=== PATIENT | male | born 1960 | race Caucasian/White ===

== ENCOUNTER 2022-01-08 19:44 | Inpatient (IN) | payer BC, SELFPAY ==
[2022-01-08] VITALS (16 sets, daily range): BP systolic 115–144; BP diastolic 65–91; PULSE 64–76; RESP 13–20; TEMP 36.4–36.8; O2SAT 95–99; BMI 37.1; BMI 27.2; BMI 28.5
--- NOTE | 2022-01-08 | IR_ITS ---
APPROVED REPORT Patient Location: Emergent Career Transition Specialist: MEI Blanton RT (R) PROCEDURES Selective coronary angiogram Mechanical thrombectomy to the dominant right coronary Drug-eluting stent to the proximal and mid dominant right coronary in a contiguous manner Drug-eluting stent deployment to the distal circumflex artery's terminal obtuse marginal artery INDICATION Acute ST elevation inferior/right ventricular myocardial infarction, Coronary artery disease Informed consent was obtained prior to the procedure. COMPLICATIONS NONE Estimated Blood Loss: LESS THAN 10 ML TECHNIQUE One percent lidocaine used to anesthetize the right anterior aspect of the wrist. The right radial artery was accessed via the Seldinger technique. A 6 Polish sheath was placed in the right radial artery. 2.5 mg of verapamil, 800 mcg of nitroglycerin, 1mg Lidocaine were given through the arterial sheath. The papa catheter was also used to perform selective coronary angiography. Therapeutic heparin was administered in the emergency department with the ACT being over 240 seconds. Additional heparin was administered. Angiography demonstrated a thrombosed proximal dominant right coronary artery. A Choice PT extra-support wire was placed through the occlusion. A penumbra mechanical thrombectomy device was used to perform aspiration and thrombectomy of the occluded vessel thereby restoring BOBY-3 flow. A 3.5 x 38 mm resolute Gene stent was placed in the proximal vessel and deployed at 22 chava reducing the stenosis. BOBY-3 flow was present. The catheter was then placed in the left main artery where angiography was performed which demonstrated a severe to critical circumflex artery. Of interest patient's right radial artery was very noncompliant rolled and access was not an easy achievement of the radial artery. Because of this I decided to stent the circumflex artery therefore the Choice PT wire was placed distally and a 3 mm x 30 mm resolute [place] stent was deployed at 16 chava reducing the severe to critical stenosis to 0%. BOBY-3 flow was present before and after the procedure. Patient experienced junctional tachycardia with bradycardia and there appeared to be recurrent ST elevation therefore repeat angiography of the right coronary artery still demonstrated BOBY-3 flow however there appeared to be a lesion that was significant enough where I believed revascularization was beneficial. A 3.5 x 15 mm resolute Gene stent was placed distal to the first stent yet still overlapping it and deployed at 16 chava reducing the stenosis to 0%. BOBY 0 flow was present at the beginning of the procedure with BOBY-3 flow at the end of the procedure the right coronary artery. After achieving excellent angiographic results the apparatus was removed the sheath was removed and hemostasis was achieved using TR banding patient was transferred to the postop putting in stable condition ANGIOGRAPHIC RESULTS The left main artery Normal The left anterior descending artery Has proximal 30% stenosis with mid vessel 30 to 40% stenosis. The circumflex artery Large ramus intermedius originates off the distal left main artery and has proximal 40% stenosis. The circumflex artery is a large vessel and gives rise to 1 large terminal obtuse marginal artery which has a long concentric 90% stenosis in the proximal portion of the first obtuse marginal artery The right coronary artery Is dominant and initially proximally thrombosed. Following revascularization the right coronary artery was widely patent with minimal mid vessel 20% stenoses and wide BOBY-3 flow The PERRY ventriculogram reveals Not performed The left ventricular end-diastolic pressure Not ricardo
--- NOTE | 2022-01-08 19:47 | ECG_ITS ---
APPROVED REPORT Exam: Resting ECG HR:62 bpm ECG Measurements Heart Rate 62 AXES PA 148 P 66 QRSd 93 QRS 77 QT 406 T 122 QTc 411 Conclusion SINUS RHYTHM NONSPECIFIC ST & T-WAVE ABNORMALITY BORDERLINE ECG UNCONFIRMED REPORT Electronically signed by : Cristi Thompson MD 01/09/2022 21:07:02
--- NOTE | 2022-01-08 19:50 | PC.NURSE ---
s/w medical lab specialist, gave report and they are ready for pt. House notified.
--- NOTE | 2022-01-08 19:51 | XR_ITS ---
PROCEDURE INFORMATION: Exam: XR Chest Exam date and time: 01/08/2022 7:54 PM Age: 61 years old Clinical indication: Pain; Other: Stemi TECHNIQUE: Imaging protocol: Radiologic exam of the chest. Views: 1 view. COMPARISON: No relevant prior studies available. FINDINGS: Lungs: Atelectasis versus infiltrate in the right lung base. Pleural spaces: Unremarkable. No pleural effusion. No pneumothorax. Heart/Mediastinum: Unremarkable. No cardiomegaly. Bones/joints: Unremarkable. IMPRESSION: Atelectasis versus infiltrate in the right lung base.
--- NOTE | 2022-01-08 19:51 | PC.NURSE ---
Pt transported to filling station laborer with zoll in place.
--- NOTE | 2022-01-08 19:52 | HMH.EDGENADL ---
ED Disposition Clinical Impression: ST elevation AK (STEMI) Qualifiers: Involved coronary artery: unspecified coronary artery Qualified Code(s): I21.3 - ST elevation (STEMI) myocardial infarction of unspecified site Disposition: Admitted As Inpatient Condition on Discharge: Serious - Critical Care Critical Care Time: No Attestation: On , the high probability of a clinically significant, sudden or life threatening deterioration of the following system(s) required my full and direct attention, intervention and personal management. The time I documented below is in addition to time spent performing reported procedures but includes the following listed in this critical care notation. Medical Decision Making - Dylan Inquiry Pt receiving controlled substance: No Orders (Tests/Meds): ED MEDICATIONS Generic Name Dose Route Start Last Admin Trade Name Freq PRN Reason Stop Dose Admin Diphenhydramine HCl 50 mg 01/08/22 19:56 Diphenhydramine 50mg/Ml Vial IV 01/08/22 19:57 ONCE ONE Fentanyl Citrate 25 mcg 01/08/22 19:56 Fentanyl 100mcg/2ml Vial IV 01/09/22 19:56 Q3MINP PRN Moderate to Severe Pain Fentanyl Citrate 50 mcg 01/08/22 19:56 Fentanyl 100mcg/2ml Vial IV 01/09/22 19:56 Q3MINP PRN Moderate to Severe Pain Fentanyl Citrate 25 mcg 01/08/22 19:56 Fentanyl 250mcg/5ml Vial IV 01/09/22 19:56 Q3MINP PRN Moderate to Severe Pain Fentanyl Citrate 50 mcg 01/08/22 19:56 Fentanyl 250mcg/5ml Vial IV 01/09/22 19:56 Q3MINP PRN Moderate to Severe Pain Flumazenil 0.2 mg 01/08/22 19:56 Flumazenil 0.1mg/Ml 5ml Vial IV 01/08/22 23:00 NEEDED PRN Sedation Heparin Sodium (Porcine) 10,000 unit 01/08/22 19:56 Heparin 1,000 Units/Ml 10ml Vial (Flight Test Supervisor) IV 01/08/22 23:56 NEEDED PRN [facility] Admissions Director Heparin Sodium/Sodium Chloride 3,000 unit 01/08/22 19:56 Heparin 1,000 Units/500ml Ns (Flight Test Supervisor) IV 01/08/22 19:57 ONCE ONE Sodium Chloride 1,000 mls @ 25 mls/hr 01/08/22 20:00 Sod Chloride 0.9% 500ml Bag IV 01/09/22 19:56 .Q25H JUANIS Lidocaine HCl 20 ml 01/08/22 19:56 Lidocaine 1% 10ml Mdv IJ 01/08/22 19:57 ONCE ONE Lidocaine HCl 20 ml 01/08/22 19:56 Lidocaine 1% 5ml Pf Vial IJ 01/08/22 19:57 ONCE ONE Midazolam HCl 1 mg 01/08/22 19:56 Midazolam 2mg/2ml Vial IV 01/09/22 19:56 Q3MINP PRN Sedation Midazolam HCl 1 mg 01/08/22 19:56 Midazolam Hcl 1mg/1ml 5ml Vial IV 01/09/22 19:56 Q3MINP PRN Sedation Naloxone HCl 0.4 mg 01/08/22 19:56 Naloxone 0.4mg/Ml Vial IV 01/09/22 19:56 Q5MINP PRN Decreased Respirations Nitroglycerin 800 mcg 01/08/22 19:56 Nitroglycerin 800mcg/8ml Syr (Flight Test Supervisor) IV 01/09/22 19:56 NEEDED PRN [facility] Admissions Director Verapamil HCl 2.5 mg 01/08/22 19:56 Verapamil 2.5mg/Ml 2ml Vial IV 01/08/22 19:57 ONCE ONE Discontinued Medications Generic Name Dose Route Start Last Admin Trade Name Freq PRN Reason Stop Dose Admin Heparin Sodium (Porcine) 10,000 unit 01/08/22 19:49 Heparin Sodium 5,000 Unit/Ml Vial IV 01/08/22 19:50 ONCE ONE Ticagrelor 180 mg 01/08/22 19:49 Ticagrelor 90mg Tablet PO 01/08/22 19:50 ONCE ONE ORDERS Category Date Time Status Cardiology Consult [Consult to Cardiology] [CONS] Cons 01/08/22 19:51 Active Routine XR chest portable Stat Exams 01/08/22 19:51 Ordered Basic Metabolic Panel Stat Lab 01/08/22 19:51 Ordered Brain Natriuretic Peptide Stat Lab 01/08/22 19:51 Ordered Complete Blood Count Auto Diff Stat Lab 01/08/22 19:51 Ordered Troponin I Q3H Lab 01/08/22 23:00 Ordered Troponin I Q3H Lab 01/09/22 02:00 Ordered Troponin I Stat Lab 01/08/22 19:51 Ordered - ECG Data Tracing #1 EKG interpreted by Roberto Duong MD: Rhythm: sinus Rate: 62 [place]: normal Ectopy: none Conduction: normal ST Segment C
[2022-01-08 19:56] LABS: Basophils # 0.2 K/mm3 (0-0.2); Basophils % 1.1 % (0.1-2.0); Eosinophils # 0.1 K/mm3 (0.0-0.4); Eosinophils % 0.9 % (0.1-12.0); Hematocrit 49.6 % (42.0-52.0); Hemoglobin 16.5 g/dL (14.1-18.0); Lymphocytes # 2.2 K/mm3 (0.7-4.5); Lymphocytes % 14.6 % (10-50); Mean Corpuscular HGB Conc 33.2 g/dL (31.8-35.4); Mean Corpuscular Hemoglobin 32.8 pg (27.0-31.2); Mean Corpuscular Volume 98.6 fl (80-94); Mean Platelet Volume 8.5 fl (7.4-10.4); Monocytes # 0.6 K/mm3 (0.1-1.0); Monocytes % 4.1 % (1.7-9.3); Neutrophils # 11.7 K/mm3 (1.8-7.8); Neutrophils % 79.3 % (37.0-80.0); Platelet Count 269 K/mm3 (142-424); Red Blood Count 5.03 M/mm3 (4.60-6.20); Red Cell Distribution Width 13.2 % (11.5-17.5); White Blood Count 14.8 K/mm3 (4.8-10.8)
[2022-01-08 20:12] LABS: Anion Gap 14.3 mEq/L (5-15); Blood Urea Nitrogen 15 mg/dl (9-20); Calcium 9.5 mg/dl (8.4-10.2); Carbon Dioxide 26 mmol/L (22.0-30.0); Chloride 100 mmol/L (98-107); Creatinine Clearance Estimated 71 mL/min (50-200); Estimated Glomerular Filt Rate 44 ml/min (>60); GFR (African American) 53 ML/MIN (>60); Glucose 305 mg/dl (74-100); Potassium 4.3 mmoL/L (3.5-5.1); Sodium 136 mmol/L (136-145)
[2022-01-08 20:24] LABS: NT Pro Brain Natriuretic Pep. 365 pg/mL (0-125); Troponin I 0.18 ng/ml (0.00-0.034)
[2022-01-08 20:44] LABS: Coronavirus 19, PCR Not Detected (NotDetected); Influenza A, PCR Not Detected (NotDetected); Influenza B, PCR Not Detected (NotDetected)
[2022-01-08 21:09] LABS: CATHL Activated Clotting Time 246 SEC (74-125)
[2022-01-08 21:09] LABS: CATHL Activated Clotting Time 256 SEC (74-125)
--- NOTE | 2022-01-08 21:11 | PC.NURSE ---
patient up to floor via stretcher from cathlab @ this time.
[2022-01-09] VITALS (14 sets, daily range): BP systolic 106–154; BP diastolic 64–93; PULSE 60–74; RESP 15–20; TEMP 36.7–37.7; O2SAT 93–96; BMI 28.3
--- NOTE | 2022-01-09 05:52 | PC.NURSE ---
-PT HAS HAD NO COMPLAINTS THIS SHIFT. DENIES CP, SOA, NUMBNESS, AND TINGLING IN EXTREMITIES. HE IS A&O X4. -NSR WITH PERIODS OF JUNCTIONAL RHYTHM, SINUS ARRHYTHMIA, PVC'S AND/OR PAC'S ON TELEMETRY. HR HAS BEEN 63-84. SBP HAS BEEN 106-149. RIGHT RADIAL CATH SITE DRESSING IN PLACE (2x2'S AND TEGADERM). C/D/I. BRUISING NOTED AROUND CATH SITE. NO HEMATOMA. CAP REFILL 2 SECS BUE AND BLE. +2 PULSES IN BUE AND BLE. VERICOSE VEINS NOTED TO BLE. S1&S2 SOUNDS HEARD ON AUSCULTATION. -HE REMAINS ON ROOM AIR WITH O2 SATS 94-98&. -HE STATES LAST BM WAS 01/08. NO BM THIS SHIFT. ABDOMEN SOFT AND NON-TENDER. VOIDS PER URINAL, 1600 ML URINE OUTPUT THIS SHIFT. HE AMBULATED IN ROOM AND TO BATHROOM THIS MORNING, AND TOLERATED WELL. -RED AND SCALY PATCHES NOTED TO BILATERAL ELBOWS.
[2022-01-09 06:15] LABS: Anion Gap 9.6 mEq/L (5-15); Blood Urea Nitrogen 15 mg/dl (9-20); Calcium 8.7 mg/dl (8.4-10.2); Carbon Dioxide 25 mmol/L (22.0-30.0); Chloride 106 mmol/L (98-107); Creatinine Clearance Estimated 119 mL/min (50-200); Estimated Glomerular Filt Rate 76 ml/min (>60); GFR (African American) 92 ML/MIN (>60); Glucose 166 mg/dl (74-100); Potassium 3.6 mmoL/L (3.5-5.1); Sodium 137 mmol/L (136-145)
[2022-01-09 06:17] LABS: Basophils # 0.1 K/mm3 (0-0.2); Basophils % 0.9 % (0.1-2.0); Eosinophils # 0.2 K/mm3 (0.0-0.4); Eosinophils % 1.7 % (0.1-12.0); Hematocrit 45.2 % (42.0-52.0); Hemoglobin 15.2 g/dL (14.1-18.0); Lymphocytes # 2.7 K/mm3 (0.7-4.5); Lymphocytes % 26.5 % (10-50); Mean Corpuscular HGB Conc 33.7 g/dL (31.8-35.4); Mean Corpuscular Hemoglobin 33.1 pg (27.0-31.2); Mean Corpuscular Volume 98.1 fl (80-94); Mean Platelet Volume 8.3 fl (7.4-10.4); Monocytes # 0.7 K/mm3 (0.1-1.0); Monocytes % 7.1 % (1.7-9.3); Neutrophils # 6.4 K/mm3 (1.8-7.8); Neutrophils % 63.8 % (37.0-80.0); Platelet Count 211 K/mm3 (142-424); Red Cell Distribution Width 13.2 % (11.5-17.5)
--- NOTE | 2022-01-09 08:11 | CA_ITS ---
APPROVED REPORT EXAM: Comprehensive 2D, Doppler, and color-flow Echocardiogram Post Tronic Machine Operator: NANCY Hoyt, RVS Ht: 6 ft 5 in Wt: 241lbs BSA: 2.42 HR: 68 bpm BP: 150/93 mmHg Rhythm: Irregular Indications: STEMI, Atypical CP arm pain with dizziness, Smoker, Family hx-CAD 2D Dimensions IVSd 1.08 cm LVEF (Visual) 79.00 % PWd 1.01 cm LA Volume 63.80 mL LVDd 4.92 cm LA Volume Index 26.40 mL/m2 (M/F) 16-34 LVDs 2.57 cm Aortic Root 3.04 cm Left Atrium 4.07 cm LVOT 2.19 cm (M/F) 1.5-2.5 M-Mode Dimensions RVDd 3.22 cm (0.9-2.6) LA Diam 4.13 cm (1.9-4.0) LVDd 5.40 cm (3.5-5.7) Ao Diam 3.38 cm (2.0-3.7) LVDs 3.99 cm (3.5-5.7) IVSd 1.05 cm (0.6-1.1) PWd 0.89 cm (0.6-1.1) EF (Teich) 50.70% EPSs 0.57 cm FS 26.10% EDV (Teich) 141.30 mL TAPSE 2.11 (<1.7) ESV (Teich) 69.60 mL LV Diastology E Decel Time 267.00 (160-240 msec) E/A Ratio 0.74 MED E' 6.20 (< 7 cm/sec) MED A' 10.00 cm/s E'/MED E' Ratio 12.74 (>14) LAT E' 8.40 (<10 cm/sec) LAT A' 12.50 cm/s E/LAT E' Ratio 9.40 (>14) Aortic Valve LVOT Max 109.00 (70-110 cm/s) LVOT VTI 22.19 cm AoV Peak Simon. 242.00 (50-130 cm/s) AO Peak GR. 23.40 mmHg AO Mean GR. 12.70 (<5 mmHg) AO VTI 48.64 (18-25 cm) CHINEDU (VTI) 1.72 (2.5-4.5 cm2) Mitral Valve MV A Velocity 107.00 (40-130 cm/s) E/A Ratio 0.74 MV Decel. Time 267.00 (160-240 ms) MV Mean Gr. 1.70 (<2mmHg) MV PHT 73.00 ms Pulmonary Valve PV Peak Velocity 116.00 (50-150 cm/s) Tricuspid Valve TR P. Velocity 176.00 cm/s Left Ventricle Left atrium is mildly enlarged left ventricle is normal size mild concentric left ventricular hypertrophy estimated ejection fraction 55% with no regional wall motion abnormality, grade 1 diastolic dysfunction seen with tissue Doppler evidence of raise left atrial pressure. Right Ventricle Right atrium and right ventricle are mildly enlarged with normal contractility. Aortic Valve Aortic valve is thickened and calcified mean gradient across aortic valve is 13 mmHg, valve area is 1.8 cm represents mild aortic stenosis, there is mild aortic insufficiency. Mitral Valve Mitral valve leaflets are minimally thickened, there is mild mitral regurgitation. Tricuspid Valve Tricuspid valve is grossly normal, there is mild tricuspid regurgitation, tricuspid regurgitation jet velocity is inadequate for calculation of the right ventricular systolic pressure. Pulmonic Valve Pulmonic valve is poorly visualized. Great Vessels Aortic root is normal size. Inferior vena cava is normal size with normal inspiratory collapse. Pericardium No significant pericardial effusion noted. Conclusion 1. Mild biatrial enlargement, normal left ventricular size, mild concentric left ventricular hypertrophy. Estimated ejection fraction 85% with no regional wall motion abnormality, grade 1 diastolic dysfunction seen with tissue Doppler evidence of atypical pressure. 2. Thickened and calcified aortic valve with mild aortic stenosis and mild aortic insufficiency. 3. Mild mitral and tricuspid regurgitation. 4. No significant pericardial effusion required. 5. Inferior vena cava normal size with normal inspiratory collapse. Electronically signed by : Matt Yan MD 01/10/2022 11:58:21
--- NOTE | 2022-01-09 08:12 | HMH.CNCARD ---
History of Present Illness Consult date: 01/09/22 Requesting physician: Indu Vicente Consult reason: chest pain Chief complaint: STEMI Additional Medical History:: 1. FH of CAD in older brother (in his 70's) and mother (CABG in her early 60's) 2. Tobacco use, >1 ppd X 47 yrs 3. CAD A. Inferior STEMI, 01/08/2022, 2 MARIYA to RCA after thrombectomy, 1 MARIYA to Cx/OM. ANGIOGRAPHIC RESULTS The left main artery Normal The left anterior descending artery Has proximal 30% stenosis with mid vessel 30 to 40% stenosis. The circumflex artery Large ramus intermedius originates off the distal left main artery and has proximal 40% stenosis. The circumflex artery is a large vessel and gives rise to 1 large terminal obtuse marginal artery which has a long concentric 90% stenosis in the proximal portion of the first obtuse marginal artery The right coronary artery Is dominant and initially proximally thrombosed. Following revascularization the right coronary artery was widely patent with minimal mid vessel 20% stenoses and wide BBOY-3 flow The PERRY ventriculogram reveals Not performed The left ventricular end-diastolic pressure Not measured IMPRESSION Acute inferior/right ventricular ST elevation myocardial infarction Successful mechanical thrombectomy followed by drug-eluting stent of the proximal and mid dominant right coronary in a contiguous manner reducing the 100% occlusion to 0% Successful drug-eluting stent denting of a severe to critically diseased large terminal obtuse marginal artery of the circumflex artery PLAN 1. Brilinta 90 twice daily plus aspirin 81 mg daily 2. Formal echocardiogram in the morning 3. Start Entresto and then uptitrate 4. It may be castañeda to hold beta-blockers for the time being. Patient will likely experience some atrial arrhythmias with some sinus arrest over the next 24 to 48 hours 5. Supportive care on telemetry 6. Inpatient care for at least 48 hours 7. High intensity statin with goal LDL less than 55 8. 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 Patient relates intermittent episodes of lightheadedness that would resolve with sitting and resting in his air conditioned truck. 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 Contacted his neighbor who called EMS to transport patient to the ER. In route EKG showed inferior ST elevation [place] and Roller Man was alerted. He was taken straight to the Roller Man with placement of stents into the occluded RCA and 90% circumflex OM arteries. Patient was noted to be bradycardic while in the ambulance but once coronary stenting was performed heart rate has improved into the 70s overnight. He has had some atrial arrhythmias but no significant ventricular arrhythmias. Patient states he feels much better this morning and is anxious to go home but understands he will need to be monitored for 48 hours. Nondiabetic On no medications Family history of heart disease in an older brother and his mother [facility] History *Have you ever received a pneumonia vaccine?: No *Have you received a flu vaccine this season?: Yes - *Social History Last grade of school completed: Advanced degree Smoking Status: Current every day smoker Tobacco Type: cigarettes # Packs/Day (cigarettes): 0 Alcohol Intake: never *Occupational Status:: employed *Travel in the last 8 weeks: None Family Hx:: Coronary Artery Disease, Diabetes Meds Allergies Allergy/AdvReac Type Sev
--- NOTE | 2022-01-09 08:25 | XR_ITS ---
FINAL REPORT CLINICAL HISTORY: follow up abnormal CXR COMPARISON: January 08, 2022 FINDINGS: PA and lateral views of the chest were obtained. The cardiac and mediastinal silhouettes are within normal limits. The lungs are clear. There is no pleural effusion or pneumothorax. No acute osseous abnormality is identified. IMPRESSION: No radiographic evidence of acute cardiac or pulmonary disease. Reviewed, Interpreted and Dictated by Rhea Scanlon MD Transcribed by Henok Mckay Authenticated and . [facility]
--- NOTE | 2022-01-09 10:03 | HMH.PHAVTE ---
[facility] Pharmacy VTE Monitoring - Patient Demographics Admission date: 01/09/22 Report Date: 01/09/22 Time: 10:03 Allergies/Adverse Reactions: Patient Allergies bacitracin [From Neosporin ([id number]-[id number])] Allergy (Verified 01/08/22 19:56) neomycin [From Neosporin (rri-sqi-filus)] Allergy (Verified 01/08/22 19:56) polymyxin B [From Neosporin ([id number]-rvb-gernd)] Allergy (Verified 01/08/22 19:56) Height: 1.96 m Weight: 109.486 kg Patient Problems: Current Active Problems ST elevation [place] (STEMI) (Acute) Tobacco use (Acute) - VTE Risk Labs: VTE Related Lab Results Hgb 15.2 g/dL (14.1-18.0) 01/09/22 05:36 Hct 45.2 % (42.0-52.0) 01/09/22 05:36 Plt Count 211 K/mm3 (142-424) 01/09/22 05:36 BUN 15 mg/dl (9-20) 01/09/22 05:36 Creatinine 1.00 mg/dl (0.66-1.25) D 01/09/22 05:36 Estimated Creat Clear 119 mL/min (50-200) 01/09/22 05:36 Was VTE Risk Assessment Performed: Yes - Prophylaxis Types of VTE Prophylaxis: TEDS Knee High Location of Applied Device: Bilateral Lower Extremeties (JONATHAN HOSE ORDERED)
--- NOTE | 2022-01-09 10:04 | HMH.PHAVTE ---
[facility] Pharmacy VTE Monitoring - Patient Demographics Admission date: 01/08/22 Report Date: 01/09/22 Time: 10:04 Allergies/Adverse Reactions: Patient Allergies bacitracin [From Neosporin ([id number]-idi-[id number])] Allergy (Verified 01/08/22 19:56) neomycin [From Neosporin (yhf-avd-iwhhf)] Allergy (Verified 01/08/22 19:56) polymyxin B [From Neosporin (wgl-civ-vcvag)] Allergy (Verified 01/08/22 19:56) Height: 1.96 m Weight: 109.486 kg Patient Problems: Current Active Problems ST elevation [place] (STEMI) (Acute) Tobacco use (Acute) - VTE Risk Labs: VTE Related Lab Results Hgb 15.2 g/dL (14.1-18.0) 01/09/22 05:36 Hct 45.2 % (42.0-52.0) 01/09/22 05:36 Plt Count 211 K/mm3 (142-424) 01/09/22 05:36 BUN 15 mg/dl (9-20) 01/09/22 05:36 Creatinine 1.00 mg/dl (0.66-1.25) D 01/09/22 05:36 Estimated Creat Clear 119 mL/min (50-200) 01/09/22 05:36 Was VTE Risk Assessment Performed: Yes - Prophylaxis VTE Prophylaxis Ordered?: Yes Types of VTE Prophylaxis: TEDS Knee High Location of Applied Device: Bilateral Lower Extremeties (JONATHAN HOSE ORDERED)
--- NOTE | 2022-01-09 10:37 | HMH.HP ---
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 Patient relates intermittent episodes of lightheadedness that would resolve with sitting and resting in his air conditioned truck. 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 Contacted his neighbor who called EMS to transport patient to the ER. In route EKG showed inferior ST elevation [place] and Supervisor Carpenters was alerted. He was taken straight to the Supervisor Carpenters with placement of stents into the occluded RCA and 90% circumflex OM arteries. Patient was noted to be bradycardic while in the ambulance but once coronary stenting was performed heart rate has improved into the 70s overnight. He has had some atrial arrhythmias but no significant ventricular arrhythmias. Patient states he feels much better this morning and is anxious to go home but understands he will need to be monitored for 48 hours. Nondiabetic On no medications Family history of heart disease in an older brother and his mother (above as per Vasquez Segundo) [facility] History I have reviewed the patient's past medical history: Yes Medical History: Denies:: Diabetes Mellitus Type 2, Hyperlipidemia, Hypertension *Have you ever received a pneumonia vaccine?: No *Have you received a flu vaccine this season?: Yes Other Surgeries: Yes: No Previous Surgery - *Social History Last grade of school completed: Advanced degree Smoking Status: Current every day smoker Tobacco Type: cigarettes # Packs/Day (cigarettes): 0 Alcohol Intake: never *Occupational Status:: employed *Travel in the last 8 weeks: None Family Hx:: Coronary Artery Disease, Diabetes Review of Systems - Constitutional Reports excessive sweating, Denies chills, Denies fever(s) - Eyes Reports blurry vision - ENT Denies nasal congestion, Denies sore throat - *Cardiovascular Reports chest pain, Reports shortness of breath, Denies leg swelling - *Respiratory Reports shortness of breath, Denies cough - *Gastrointestinal Denies abdominal pain, Denies loose stools, Denies nausea, Denies vomiting - *Genitourinary Denies difficulty urinating, Denies painful urination - *Musculoskeletal Denies joint pain - *Neurologic Reports weakness, Denies headache(s), Denies dizziness Meds Home Medications Medication Instructions Recorded Confirmed Type No Known Home Medications 01/09/22 01/09/22 History Allergies Allergy/AdvReac Type Severity Reaction Status Date / Time bacitracin Allergy Verified 01/08/22 19:56 [From Neosporin ([id number]-mln-fytjo)] neomycin Allergy Verified 01/08/22 19:56 [From Neosporin (svl-asd-auviy)] polymyxin B Allergy Verified 01/08/22 19:56 [From Neosporin ([id number])] Exam Vital signs and Labs for Last 24 Hours: Temp Pulse Resp BP Pulse Ox 99.9 F H 70 20 150/93 H 96 01/09/22 08:00 01/09/22 08:00 01/09/22 08:00 01/09/22 08:00 01/09/22 08:00 Laboratory Results - last 24 hr 01/08/22 19:47: WBC 14.8 H, RBC 5.03, Hgb 16.5, Hct 49.6, MCV 98.6 H, MCH 32.8 H, MCHC 33.2, RDW 13.2, Plt Count 269, MPV 8.5, Neut % (Auto) 79.3, Lymph % (Auto) 14.6, Sanders % (Auto) 4.1, Eos % (Auto) 0.9, Baso % (Auto) 1.1, Neut # (Auto) 11.7 H, Lymph # (Auto) 2.2, [place] # (Auto) 0.6, Eos # (Auto) 0.1, Baso # (Auto) 0.2 01/08/22 19:47: Sodium 136, Potassium 4.3, Chloride 100, Carbon Dioxide 26, Anion Gap 14.3, BUN 15, Creatinine 1.60 H, Estimated Creat Clear 71, Estimated GFR 44 L, Est GFR ( Amer) 53 L, Glucose 305 H, Calcium 9.5, Troponin I 0.18 H, NT-Pro-B Natriuret Pep
--- NOTE | 2022-01-09 15:01 | PC.NURSE ---
PT IS SITTING UP ON THE SOB. ALERT AND ORIENTED X4. NO COMPLAINTS OF CP/SOA. PT HAS BEEN AMBULATING AROUND THE ROOM AND TO THE BATHROOM. EATING AND DRINKING WELL. NO SWELLING NOTED TO BLE. NSR ON TELEMETRY. LUNG SOUNDS CLEAR. ABDOMEN SOFT/NON TENDER. PT STATED HIS LAST BOWEL MOVEMENT WAS YESTERDAY. WILL CONTINUE TO MONITOR.
[2022-01-10] VITALS: PULSE 65
[2022-01-10 04:00] VITALS: BP 132/69; PULSE 65; PULSE 68; RESP 16; TEMP 36.9; O2SAT 96
[2022-01-10 05:49] VITALS: BMI 28.5
--- NOTE | 2022-01-10 05:57 | PC.NURSE ---
-PT HAS HAD NO COMPLAINTS THIS SHIFT. DENIES CP, SOA, NUMBNESS, AND TINGLING IN EXTREMITIES. HE IS A&O X4. -NSR WITH INVERTED T WAVES AND OCCASIONAL PAC'S ON TELE. HR HAS BEEN 66-70. SBP HAS BEEN 131-154. RIGHT RADIAL CATH SITE DRESSING IN PLACE (2x2'S AND TEGADERM). C/D/I. BRUISING NOTED AROUND CATH SITE. NO HEMATOMA. CAP REFILL 2 SECS BUE AND BLE. +2 PULSES IN BUE AND BLE. VERICOSE VEINS NOTED TO BLE. S1&S2 SOUNDS HEARD ON AUSCULTATION. -HE REMAINS ON ROOM AIR WITH O2 SATS 96%
--- NOTE | 2022-01-10 07:30 | ECG_ITS ---
APPROVED REPORT Exam: Resting ECG HR:66 bpm ECG Measurements Heart Rate 66 AXES OR 161 P 43 QRSd 98 QRS 58 QT 397 T 133 QTc 410 Conclusion SINUS RHYTHM WITH SINUS ARRHYTHMIA ST DEVIATION AND MODERATE T-WAVE ABNORMALITY, CONSIDER LATERAL ISCHEMIA [-0.1+ mV T-WAVE IN I/aVL/V5/V6] ABNORMAL ECG UNCONFIRMED REPORT Electronically signed by : Cristi Thompson MD 01/10/2022 14:53:13
--- NOTE | 2022-01-10 07:51 | P.PN_ITS ---
Subjective Date: 01/10/22 Time: 07:51 Principal diagnosis: STEMI Interval history: 61-year-old white male in bed in no acute distress. Denies any chest pain, pressure or tightness. Telemetry shows no arrhythmias overnight. EKG shows slight ST scooping inferiorly but improved compared to admission. T wave inversion noted laterally. Consistent with evolving changes from recent inferior VA. Echocardiogram results officially pending at this time but preliminary shows preserved ejection fraction. Exam Vital signs and Labs for Last 24 Hours: Temp Pulse Resp BP Pulse Ox 98.5 F 68 16 132/69 96 01/10/22 04:00 01/10/22 04:00 01/10/22 04:00 01/10/22 04:00 01/10/22 04:00 I & O for Last 24 hours: Intake & Output 01/07/22 01/08/22 01/09/22 01/10/22 11:59 11:59 11:59 11:59 Intake Total 720 / 720 960 / 960 Output Total 1600 / 1600 Balance -880 / -880 960 / 960 Weight 240 lb 4.862 oz 241 lb 6.005 oz - Constitutional no acute distress - *Routine HEENT Exam Head: Present: normocephalic Eye: Present: EOMI, PERRL ENT: Present: mucous membranes moist - *Routine Neck Exam Present: supple. Absent: lymphadenopathy - *Routine Respiratory Exam Present: CTA bilaterally - *Routine Cardiovascular Exam Present: RRR - *Routine Abdominal Exam Present: soft, normoactive bowel sounds. Absent: tenderness - *Routine Extremities Exam Absent: cyanosis, clubbing, edema - *Routine Skin Exam Present: warm. Absent: rash - *Routine Neurological Exam Present: alert, oriented X3 Progress Note: A&P (1) ST elevation VA (STEMI) Status: Acute (2) Tobacco use Status: Acute Assessment and Plan for All Diagnoses:: 1. Inferior ST elevation VA status post drug-eluting stent placement to the RCA and circumflex OM. Patient is on aspirin, Brilinta, atorvastatin and Entresto. Holding off on beta-andres therapy at this time due to bradycardia and history of junctional heart rhythm in the past. 2. Hyperlipidemia, on statin therapy 3. Tobacco use, patient states he has stopped smoking at the time of his VA this admission. Anticipate patient could be discharged home this evening at the end of his 48- hour monitoring. Home medications recommendations: Aspirin 81 mg daily Brilinta 90 mg twice daily Atorvastatin 40 mg daily Entresto twice daily Off work until follow-up next week. Will refer to cardiac rehab. Follow-up in our office in 1 week.
[2022-01-10 08:00] VITALS: BP 134/75; PULSE 70; RESP 18; TEMP 36.8; O2SAT 96; O2SAT 97
--- NOTE | 2022-01-10 08:35 | HMH.ACPN2 ---
Internal Medicine - PN: Subj *Date: 01/10/22 *Time: 08:35 Interval history: Patient states he is feeling well this morning. He has had no more chest pain or shortness of breath. He slept well and ate breakfast and was anxious to go home. Exam Vital signs and Labs for Last 24 Hours: Temp Pulse Resp BP Pulse Ox 98.5 F 68 16 132/69 96 01/10/22 04:00 01/10/22 04:00 01/10/22 04:00 01/10/22 04:00 01/10/22 04:00 I & O for Last 24 hours: Intake & Output 01/07/22 01/08/22 01/09/22 01/10/22 11:59 11:59 11:59 11:59 Intake Total 720 / 720 960 / 960 Output Total 1600 / 1600 Balance -880 / -880 960 / 960 Weight 240 lb 4.862 oz 241 lb 6.005 oz - Constitutional no acute distress - *Routine HEENT Exam Head: Present: normocephalic Eye: Present: EOMI, PERRL ENT: Present: mucous membranes moist - *Routine Neck Exam Present: supple. Absent: lymphadenopathy - *Routine Respiratory Exam Present: CTA bilaterally - *Routine Cardiovascular Exam Present: RRR - *Routine Abdominal Exam Present: soft, normoactive bowel sounds. Absent: tenderness - *Routine Extremities Exam Absent: cyanosis, clubbing, edema - *Routine Skin Exam Present: warm. Absent: rash - *Routine Neurological Exam Present: alert, oriented X3 Assessment and Plan (1) ST elevation MD (STEMI) Status: Acute Qualifiers: Involved coronary artery: unspecified coronary artery Qualified Code(s): I21.3 - ST elevation (STEMI) myocardial infarction of unspecified site Category: Medical Code(s): I21.3 - ST elevation (STEMI) myocardial infarction of unspecified site (2) Tobacco use Status: Acute Category: Social Hx Code(s): Z72.0 - Tobacco use - Assessment and plan all Dx Assessment and Plan for all problems:: Cardiology has seen the patient and telemetry showed no arrhythmias overnight. EKG showed slight ST scooping inferiorly but improved compared to admission. Preliminary echo shows a preserved ejection fraction. They felt the patient could be discharged home this evening at the end of his 48-hour monitoring period.
--- NOTE | 2022-01-10 08:48 | PC.NURSE ---
Discharge order placed on patient, cardiology states patient is stable for discharge after 5pm this evening 48 hours post stemi
--- NOTE | 2022-01-10 11:14 | HMH.PHACLD ---
Saad Collins has received discharge medication counseling on the following medications: -ASPIRIN 81 MG (FOR HEART HEALTH, DAILY, BLEED/BRUISE RISK) -ENTRESTO (FOR BP/HEART, TWICE DAILY, WATCH FOR DIZZINESS/LIGHTEHEADEDNESS, ELEVATED K+, HEADACHE) -ATORVASTATIN (FOR CHOLESTEROL, BEST AT BEDTIME, WATCH FOR MUSCLE PAIN/WEAKNESS, ELEVATED LIVER ENZYMES) -BRILINTA (BLOOD THINNER, TWICE DAILY, BLEED/BRUISE RISK, BLEED LOCATION CHANGES APPEARANCE, BUMP HEAD = GO TO ER, CAN CAUSE SOB) PATIENT VERBALIZED NO QUESTIONS AT THIS TIME.
[2022-01-10 12:00] VITALS: BP 147/84; PULSE 61; PULSE 71; RESP 18; TEMP 36.5; O2SAT 94
--- NOTE | 2022-01-10 15:05 | PC.NURSE ---
rounded on patient. extensive teaching done with patient over brilinta and patient home medication. brilinta was received by patient and is in his personal belongings bag to be taken home with im. educated on post cath stay. patient is eager for discharge. stated his stay has been wonderful, and voiced understanding on all teaching provided.
[2022-01-10 16:00] VITALS: BP 135/58; PULSE 67; RESP 18; TEMP 36.6; O2SAT 95
--- NOTE | 2022-01-10 22:46 | HMH.DCSUM ---
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 Patient relates intermittent episodes of lightheadedness that would resolve with sitting and resting in his air conditioned truck. 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 Contacted his neighbor who called EMS to transport patient to the ER. In route EKG showed inferior ST elevation SC and Film [facility] Coordinator was alerted. He was taken straight to the Film [facility] Coordinator with placement of stents into the occluded RCA and 90% circumflex OM arteries. Patient was noted to be bradycardic while in the ambulance but once coronary stenting was performed heart rate has improved into the 70s overnight. He has had some atrial arrhythmias but no significant ventricular arrhythmias. Patient states he feels much better this morning and is anxious to go home but understands he will need to be monitored for 48 hours. Nondiabetic On no medications Family history of heart disease in an older brother and his mother (above as per [facility]) Hospital Course Hospital Course: The patient was started on Brilinta and aspirin as well as Entresto. He was kept for monitoring on telemetry for 48 hours. His telemetry showed no arrhythmias overnight and his EKG showed slight ST scooping inferiorly, but had improved compared to his admission EKG. His preliminary echo showed a preserved ejection fraction. Cardiology felt he should be kept until the end of his 48-hour monitoring. He was stable to be discharged on ASA, Brilinta, atorvastatin, and Entresto. He will follow-up with cardiology and will be referred to cardiac rehab. Objective Vital signs: Temp Pulse Resp BP Pulse Ox 97.8 F 67 18 135/58 L 95 01/10/22 16:00 01/10/22 16:00 01/10/22 16:00 01/10/22 16:00 01/10/22 16:00 Narrative: - Constitutional no acute distress - *Routine HEENT Exam Head: Present: normocephalic Eye: Present: EOMI, PERRL ENT: Present: mucous membranes moist - *Routine Neck Exam Present: supple. Absent: lymphadenopathy - *Routine Respiratory Exam Present: CTA bilaterally - *Routine Cardiovascular Exam Present: RRR - *Routine Abdominal Exam Present: soft, normoactive bowel sounds. Absent: tenderness - *Routine Rectal Exam Rectal:: deferred - *Routine Genitalia Exam Genitalia:: deferred - *Routine Extremities Exam Absent: cyanosis, clubbing, edema - *Routine Skin Exam Present: warm. Absent: rash - *Routine Neurological Exam Present: alert, oriented X3 DS: Diagnosis - Discharge Diagnosis (1) ST elevation SC (STEMI) Status: Acute (2) Tobacco use Status: Acute Discharge Plan - Patient Discharge Instructions ACTIVITY: Limited activity DIET: low fat, low cholesterol Patient Instructions: DI for Heart Attack, DI for Cardiac Catheterization, DI for Surgical Site Infection Forms: [facility] Work Release - Follow up Plan Follow up with: Jaxon Starks MD [Staff Physician] - 01/17/22 9:00 am Disposition: Home, Self-Care Condition at discharge:: Improved Home Medications: Home Medications Medication Instructions Recorded Confirmed Type Aspirin [Aspirin 81mg EC Tab] 81 mg PO DAILY tab 01/10/22 Rx Atorvastatin Calcium [Lipitor 40mg 40 mg PO HS #30 tab 01/10/22 Rx Tablet*] Sacubitril/Valsartan [Entresto 1 each PO BID #60 tab 01/10/22 Rx 24/26mg Tablet] Ticagrelor [Brilinta 90mg 90 mg PO BID #60 tab 01/10/22 Rx Tablet] Prescriptions/Medication Reconciliation: New Aspirin [Aspirin 81mg EC Tab] 81 mg PO
--- NOTE | 2022-01-13 13:15 | CARE MANAGER ---
Left message for with patient for post-discharge phone interview.
== END 2022-01-10 17:03 | disposition home or self-care (01) | DRG 247 ==
LOC: ER 20:10 → SDC 20:13 → 2ND 20:58
PROVIDERS: Admitting Provider Family Medicine; Emergency Provider Emergency Medicine; PCP Nurse Practitioner Family; Referring Provider Internal Medicine; Visit Provider Family Medicine
PROC: 027136Z Dilation of Coronary Artery, Two Arteries with Three Drug-eluting Intraluminal Devices, Percutaneous Approach (ICD-10-PCS; principal; 2022-01-08 19:45)
DX: I21.19 ST elevation (STEMI) myocardial infarction involving other coronary artery of inferior wall (principal); I25.82 Chronic total occlusion of coronary artery; F17.210 Nicotine dependence, cigarettes, uncomplicated; I25.10 Atherosclerotic heart disease of native coronary artery without angina pectoris; Z82.49 Family history of ischemic heart disease and other diseases of the circulatory system; E78.5 Hyperlipidemia, unspecified; N17.9 Acute kidney failure, unspecified
CPT/HCPCS: 36415; 71045; 71046; 80048; 83880; 84484; 85025; 85347; 92928; 92943; 93005; 93306; 93454; 99152; 99153; 99285; C1725; C1769; C1874; C1876; C9600; C9607; C9803; J1644; Q9967; U0003; U0005

== ENCOUNTER 2025-05-19 13:00 | Outpatient (CLI) | payer MEDICARE, SELFPAY ==
--- NOTE | 2025-05-19 13:02 | CT_ITS ---
FINAL REPORT TECHNIQUE: Axial images were obtained from the lung apex to the mid abdomen by computed tomography. This study was performed with techniques to keep radiation doses as low as reasonably achievable (ALARA). Individualized dose reduction techniques using automated exposure control or adjustment of mA and/or kV according to the patient's size were employed. CLINICAL HISTORY: LUNG SCREENING patient is a current smoker and smokes 10 cigarettes per day. He has been a smoker for 51 years. patient has CAD. FINDINGS: CHEST CT LOW DOSE CTDI vol (mGy): 2.90 DLP (mGy-cm): 113.07 There is no axillary adenopathy. There is no hilar or mediastinal adenopathy. The heart is normal in size. There is prominent coronary artery calcification. There is no pericardial or pleural effusion. Lung window images demonstrate no suspicious infiltrate or nodule. Limited images of the upper abdomen are unremarkable. IMPRESSION: No pulmonary nodules identified. Modifier as: Prominent coronary artery calcification. Lung RADS category 1S. Recommend 12 month follow-up low-dose chest CT. Reviewed, Interpreted and Dictated by Rhea Scanlon MD Transcribed by Telma Rios Authenticated and [facility]
== END 2025-05-19 23:59 | disposition home or self-care (01) ==
LOC: RAD 13:01
PROVIDERS: PCP Nurse Practitioner Family; Visit Provider Nurse Practitioner Family
DX: Z12.2 Encounter for screening for malignant neoplasm of respiratory organs (principal); F17.210 Nicotine dependence, cigarettes, uncomplicated; I25.10 Atherosclerotic heart disease of native coronary artery without angina pectoris
CPT/HCPCS: 71271